=== PATIENT | female | born 1980 | race Caucasian/White ===

== ENCOUNTER 2016-06-09 05:36 | Day surgery (SDC) | payer BC, MEDICAID ==
[2016-06-03 10:20] LABS: HEMATOCRIT 33.4 % (36.0-47.0); HEMOGLOBIN 10.7 g/dL (12.0-15.5); HGB HCT DIFFERENCE -1.3; MEAN CORPUSCULAR HEMOGLOBIN 26.8 pg (27.0-33.4); MEAN CORPUSCULAR HGB CONC 31.9 g/dL (32.0-36.0); MEAN CORPUSCULAR VOLUME 84 fl (80-97); RED BLOOD COUNT 3.97 10^6/uL (3.72-5.28); RED CELL DISTRIBUTION WIDTH 16.8 % (11.5-14.0); WHITE BLOOD COUNT 4.5 10^3/uL (4.0-10.5)
[2016-06-03 10:24] LABS: APPEARANCE,URINE CLOUDY; BILIRUBIN,URINE NEGATIVE (NEGATIVE); GLUCOSE, URINE NEGATIVE (NEGATIVE); KETONES,URINE NEGATIVE (NEGATIVE); LEUKOCYTE ESTERASE,URINE NEGATIVE (NEGATIVE); NITRITE,URINE NEGATIVE (NEGATIVE); PROTEIN,URINE NEGATIVE (NEGATIVE); URINE SPECIFIC GRAVITY 1.008; UROBILINOGEN,URINE NEGATIVE mg/dL (<2.0)
[2016-06-03 10:42] LABS: ALANINE AMINOTRANSFERASE 37 U/L (9-52); ALBUMIN 3.9 g/dL (3.5-5.0); ALKALINE PHOSPHATASE 64 U/L (38-126); ANION GAP 7 (5-19); ASPARTATE AMINO TRANSFERASE 38 U/L (14-36); BILIRUBIN,TOTAL 0.4 mg/dL (0.2-1.3); BLOOD UREA NITROGEN 8 mg/dL (7-20); CALCIUM 9.1 mg/dL (8.4-10.2); CARBON DIOXIDE 28 mmol/L (22-30); CHLORIDE 104 mmol/L (98-107); GLUCOSE 93 mg/dL (75-110); POTASSIUM 4.3 mmol/L (3.6-5.0); SODIUM 138.9 mmol/L (137-145); TOTAL PROTEIN 6.4 g/dL (6.3-8.2)
[~2016-06-09 05:36] MED LIST: CEFAZOLIN SODIUM 1 GM in DEXTROSE 5%-WATER 50 ML IV PRN; LACTATED RINGERS 1000 ML IV PRN; LIDOCAINE 0.5% INJ-PF (5 MG/ML) 50 ML SDV SUBCUT PRN; SCOPOLAMINE HYDROBROMIDE 1.5 MG PATCH.TD72 TD PRN
[2016-06-09] MEDS ORDERED: BUPIVACAINE HCL 0.25 % INJ/PF (2.5 MG/1 ML) 30 ML VIAL ONE (06:31)
[2016-06-09] MEDS ORDERED: ONDANSETRON HCL INJ/PF 4 MG/2 ML SDV ONE (07:05)
[2016-06-09] MEDS ORDERED: MIDAZOLAM 2 MG/2 ML INJ ONE (07:05)
[2016-06-09] MEDS ORDERED: FENTANYL CITRATE INJ/PF 250 MCG/5 ML AMPULE ONE (07:05)
[2016-06-09] MEDS ORDERED: PROPOFOL INJ 200 MG/20 ML VIAL IV ONE (07:05)
[2016-06-09] MEDS ORDERED: DEXAMETHASONE SOD PHOSPHATE INJ 4 MG/1 ML VIAL ONE (07:05)
[2016-06-09] MEDS ORDERED: MORPHINE SULFATE 10 MG/ML INJ ONE (07:06)
[2016-06-09] MEDS ORDERED: MEPERIDINE HCL/PF INJ 25 MG/1 ML DISP.SYRIN IV PRN (08:34)
[2016-06-09] MEDS ORDERED: FENTANYL CITRATE INJ/PF 100 MCG/2 ML AMPUL IV PRN ×3 (08:34)
[2016-06-09] MEDS ORDERED: PROMETHAZINE HCL INJ 25 MG/1 ML VIAL IV PRN ×3 (08:34→09:45)
[2016-06-09] MEDS ORDERED: DIPHENHYDRAMINE HCL 50 MG/ML VIAL IV PRN (08:34)
[2016-06-09] MEDS ORDERED: MORPHINE SULFATE 10 MG/ML INJ IV PRN (08:34)
[2016-06-09] MEDS: FENTANYL CITRATE INJ/PF 100 MCG/2 ML AMPUL ONE ×2 (09:32→09:37)
[2016-06-09] MEDS ORDERED: HYDROMORPHONE HCL 2 MG TABLET PO PRN ×2 (09:44)
[2016-06-09] MEDS ORDERED: KETOROLAC TROMETHAMINE INJ/PF 30 MG/1 ML SDV ONE (09:48)
--- NOTE | 2016-06-09 09:58 | OPERATIVE REPORT E ---
Operative Report NAME: DAYNA KESSLER : 1980 AGE: 35Y DATE OF SURGERY: 06/09/2016 ROOM: PREOPERATIVE DIAGNOSIS: Undesired fertility, dysfunctional uterine bleeding, pelvic pain. POSTOPERATIVE DIAGNOSES: 1. Undesired fertility, dysfunctional uterine bleeding, pelvic pain. 2. Adenomyosis uteri. OPERATION: D and C, hysteroscopy, NovaSure, laparoscopy with application of bilateral Filshie clips to the tubes. SURGEON: CAROLINA ALEXIS M.D. ANESTHESIA: General with 0.25% Marcaine. ESTIMATED BLOOD LOSS: Negligible. PERTINENT HISTORY AND OPERATIVE FINDINGS: This is a 35-year-old female desirous of elective sterilization and also was desirous of stopping her bleeding as it causes a lot of pain and discomfort. She has had some anemia in the past. She was diagnosed with endometriosis in the past and adenomyosis. At this time there was no evidence of endometriosis. She did have a moderate amount of adenomyosis. The tubes appeared to be normal. The ovaries appeared to be normal. The bowel appeared to be grossly normal. The appendix was not visualized. The liver and gallbladder appeared to be normal. OPERATIVE PROCEDURE: The patient was brought into the OR, placed on a table in a supine position, inducted under general anesthesia. Following this she was repositioned in dorsal lithotomy position, prepped and draped in a sterile fashion. The bladder was drained of about 50 mL of clear yellow urine. A pelvic under anesthesia was performed. A bivalve speculum was inserted and opened up. The cervix was grasped on its anterior lip with a single-tooth tenaculum. It was sounded to 9 cm. It was dilated and a tenaculum probe was inserted. The other equipment was removed. Attention was then turned towards the abdominal wall after regloving and Veress needle was introduced subumbilically and carried through the various layers until the abdominal cavity was entered. Upon entering the abdominal cavity approximately 4.3 L of CO2 were injected. The opening pressure was 5 and the closing pressure was 15. Once the Veress needle was removed the equipment was turned off and an incision was made subumbilically. Then a trocar and sleeve were inserted through this incision and carried through the various layers until the abdominal cavity was entered. The insufflation CO2 was reconnected and restarted. A scope was inserted through the sleeve and the contents of the pelvis were visualized. A second incision was made suprapubically through her previous incision and a trocar and sleeve inserted through this. The trocar was moved into the sleeve. Filshie clips were inserted. The right tube was then picked up in its mid portion and a Filshie clip was applied. The same procedure was carried out on the left. After reinspection it became clear that the first Filshie clip that was placed on the right was off center and had really only clipped the mesosalpinx. With this in mind another Filshie clip was obtained and through the suprapubic port it was applied to the mid portion of the right tube. This was adequately secured. Pictures were taken. This terminated the procedure. The lower sleeve was removed. There was no evidence of active bleeding. The scope was removed. The CO2 was allowed to escape. The subumbilical sleeve was removed. Marcaine 0.25% was then injected into the incisions, requiring about 7 mL, 4 mL in the upper subumbilical incision and 3 mL in the lower incision. Having done this, the fascia was closed with interrupted 0 Vicryl in both these incisions. The skin edges in the suprapubic were closed with interrupted using 4-0 Prolene. The subcuticular stitch was used subumbilically to close this incision. Bandages were applied and attention was turned back down towards the pelvis. A weighted speculum was inserted. The lateral retractor was inserted. The cervix was grasped on its anterior lip with 2 single-tooth tenacula. It was measured once again with a probe, and cavity from the cervix to the fundus was 9 cm. Using the dilators it was ascertained that the cervical length was 4 cm, giving us a cavity length of 5 cm. After we dilated the cavity we did do a curettage. Tissue was sent to the lab for further evaluation. A hysteroscope was then enabled with saline and slid gently through the external and internal os of the cervix, and the cavity of the uterus was visualized with no apparent abnormal findings. Having done this the excess fluid was suctioned out and then a NovaSure was gently inserted through the external and internal os of the cervix, advanced to the fundus and opened up. Going north, south, east, west and rotating 45 to 90 degrees in between and then pulling back, this was done 3 times, and we ascertained a cavity width of 4.1. Having established this, they gave us a power level. The equipment was purged and pressures were established and then finally, when the cavity was ascertained to be okay, the power was turned on. We had a good burn. The equipment was closed and removed. The hysteroscope was reinserted. There was a good burn of the uterine cavity. The excess fluid was sucked out again. The tenacula were removed. There was no evidence of active bleeding from the tenaculum punctures. This being the case, the weighted speculum and the lateral retractor were removed and the patient had anesthesia discontinued. She was placed back in a supine position and transferred to the recovery room in satisfactory condition. DICTATING PHYSICIAN: CAROLINA ALEXIS M.D. [id number] PHY#: [id number] ID: [id number] JOB#: [id number] ACCT: [id number] cc:CAROLINA ALEXIS M.D. >
[2016-06-09] MEDS ORDERED: ACETAMINOPHEN 100 ML IV ONE (10:06)
[2016-06-09 11:22] VITALS: BP 124/85
[2016-06-09] MEDS ORDERED: ROCURONIUM BROMIDE INJ 50 MG/5 ML VIAL IV ONE (14:15)
[2016-06-09] MEDS ORDERED: SUCCINYLCHOLINE CHLORIDE INJ 200 MG/10 ML VIAL ONE (14:15)
== END 2016-06-09 11:40 | disposition home or self-care (01) ==
LOC: OROUT 05:36
PROVIDERS: ATTEND Obstetrics & Gynecology
PROC: 0U5B8ZZ Destruction of Endometrium, Via Natural or Artificial Opening Endoscopic (ICD-10-PCS; principal; 2016-06-09 07:30)
PROC: 0UL74CZ Occlusion of Bilateral Fallopian Tubes with Extraluminal Device, Percutaneous Endoscopic Approach (ICD-10-PCS; 2016-06-09 07:30)
DX: Z30.2 Encounter for sterilization (principal); N93.8 Other specified abnormal uterine and vaginal bleeding; N80.0 Endometriosis of uterus; K21.9 Gastro-esophageal reflux disease without esophagitis; D64.9 Anemia, unspecified; Z79.899 Other long term (current) drug therapy; Z88.2 Allergy status to sulfonamides; Z91.040 Latex allergy status
CPT/HCPCS: 36415; 85027; 81025; 80053; 81001; 88305 ×2; 58563; 58671; J2250; J0690; J3490; J1100; J3010 ×2; J1885; J2270; J0330; J2405; J2704; J0131; 851

== ENCOUNTER 2016-07-25 09:09 | Emergency (ER) | payer BC ==
[2016-07-25] MEDS ORDERED: ONDANSETRON 4 MG TAB.RAPDIS PO ONE (09:49)
[2016-07-25 09:53] LABS: APPEARANCE,URINE SLIGHTLY-CLOUDY; BILIRUBIN,URINE NEGATIVE (NEGATIVE); GLUCOSE, URINE NEGATIVE (NEGATIVE); KETONES,URINE NEGATIVE (NEGATIVE); LEUKOCYTE ESTERASE,URINE NEGATIVE (NEGATIVE); NITRITE,URINE POSITIVE (NEGATIVE); PROTEIN,URINE NEGATIVE (NEGATIVE); URINE SPECIFIC GRAVITY 1.019
--- NOTE | 2016-07-25 09:54 | ER Document Report ---
ED GI/ - General Chief Complaint: Pain With Urination Stated Complaint: POSSIBLE UTI Time seen by provider: 09:40 Mode of Arrival: Ambulatory Information source: Patient Notes: 35-year-old female presents to ED for urine urgency frequency and pain in both flank areas. She states she was diagnosed with a bad UTI on Monday started on Cipro and given a Rocephin shot they did a urine but they did not do a sensitivity. She went back to the urgent care today and they told it was indeterminate and send her to the emergency room. She states she does not have burning she just has frequent urgency and flank pain. TRAVEL OUTSIDE OF THE [place] IN LAST 30 DAYS: No - HPI Patient complains to provider of: Flank pain, Other - Urinary frequency urgency and nausea Onset: Other - Monday 3 days ago Timing/Duration: Intermittent Quality of pain: Cramping, Sharp Severity at maximum: Moderate Severity in ED: Moderate Pain Level: 4 Location: Left flank, Right flank LMP: had a tubal ligation and you uterine ablation on 06/09/2016 Associated symptoms: Nausea, Radiates to back Exacerbated by: Other - Urination Relieved by: Denies Similar symptoms previously: Yes Recently seen / treated by doctor: Yes - Related Data Allergies/Adverse Reactions: latex [Latex] Allergy (Severe, Verified 07/25/16 09:10) rash Sulfa (Sulfonamide Antibiotics) Allergy (Severe, Verified 07/25/16 09:10) rash,difficulty breathing Past Medical History - General Information source: Patient - Social History Smoking Status: Never Smoker Cigarette use (# per day): No Chew tobacco use (# tins/day): No Smoking Education Provided: No Frequency of alcohol use: Rare Drug Abuse: None Occupation: [employer] Lives with: Alone - her daught Family History: CAD, CVA, DM, Hyperlipidemia, Hypertension, Thyroid Disfunction , Other - Lupus Patient has suicidal ideation: No Patient has homicidal ideation: No - Past Medical History Cardiac Medical History: Reports: None Pulmonary Medical History: Reports: Hx Pneumonia - hx of EENT Medical History: Reports: None Neurological Medical History: Reports: Hx Migraine Renal/ Medical History: Reports: Hx Ovarian Cysts, Other - Endometriosis Malignancy Medical History: Reports: None GI Medical History: Reports: Hx Gastroesophageal Reflux Disease Musculoskeltal Medical History: Reports Hx Fibromyalgia, Reports Hx Musculoskeletal Trauma Skin Medical History: Reports None Psychiatric Medical History: Reports: Hx Attention Deficit Hyperactivity Disorder - ADD, Hx Depression Traumatic Medical History: Reports: Hx Pneumothorax - At with a chest tube Past Surgical History: Reports: Hx Section, Hx Gynecologic Surgery - Laparoscope bilateral tubal ligation, uterine ablation, Hx Orthopedic Surgery - Left Knee Surgery - Immunizations Hx Diphtheria, Pertussis, Tetanus Vaccination: Yes Review of Systems - Review of Systems Constitutional: No symptoms reported EENT: No symptoms reported Cardiovascular: No symptoms reported Respiratory: No symptoms reported Gastrointestinal: Nausea. denies: Vomiting Genitourinary: Frequency, Urgency, Other - Flank pain Female Genitourinary: No symptoms reported Musculoskeletal: No symptoms reported Skin: No symptoms reported Hematologic/Lymphatic: No symptoms reported Neurological/Psychological: No symptoms reported -: Yes All other systems reviewed and negative Physical Exam - Vital signs Vitals: Temp Pulse Resp BP Pulse Ox 98.6 F 83 16 134/87 H 99 07/25/16 09:13 07/25/16 09:13 07/25/16 09:13 07/25/16 09:13 07/25/16 09:13 Interpretation: Normal - General General appearance: Appears well, Alert - HEENT Head: Normocephalic, Atraumatic Eyes: Normal Pupils: PERRL - Respiratory Respiratory status: No respiratory distress Chest status: Nontender Breath sounds: Normal Chest palpation: Normal - Cardiovascular Rhythm: Regular Heart sounds: Normal auscultation Murmur: No - Abdominal Inspection: Normal Distension: No distension Bowel sounds: Normal Tenderness: Nontender Organomegaly: No organomegaly - Back Back: Normal, Tender, CVA tenderness. No: Nontender, Deformity/step-off, Vertebra tenderness, Scars, Scoliosis, Wounds, Other - Extremities General upper extremity: Normal inspection, Nontender, Normal color, Normal ROM , Normal temperature General lower extremity: Normal inspection, Nontender, Normal color, Normal ROM , Normal temperature, Normal weight bearing. No: Rodger's sign - Neurological Neuro grossly intact: Yes Cognition: Normal Orientation: AAOx4 Dru Coma Scale Eye Opening: Spontaneous Sebastian Coma Scale Verbal: Oriented Sebastian Coma Scale Motor: Obeys Commands Sebastian Coma Scale Total: 15 Speech: Normal Motor strength normal: LUE, RUE, LLE, RLE Sensory: Normal - Psychological Associated symptoms: Normal affect, Normal mood - Skin Skin Temperature: Warm Skin Moisture: Dry Skin Color: Normal Course - Re-evaluation Re-evalutation: 07/25/16 10:03 Discussed labs results with the patient we'll treat patient with Macrobid and Toradol and discharged home with prescription for Macrobid. Have sent a culture and sensitivity for the urine patient will be called with the results of that. - Vital Signs Vital signs: Temp Pulse Resp BP Pulse Ox 98.1 F 66 19 118/74 98 07/25/16 10:27 07/25/16 10:27 07/25/16 10:27 07/25/16 10:27 07/25/16 10:27 - Laboratory Laboratory results interpreted by me: 07/25/16 09:30 Urine Nitrite POSITIVE H Urine Urobilinogen 2.0 H Discharge - Discharge Clinical Impression: UTI (urinary tract infection) Qualifiers: Urinary tract infection type: acute cystitis Hematuria presence: without hematuria Qualified Code(s): N30.00 - Acute cystitis without hematuria Condition: Stable Disposition: HOME, SELF-CARE Additional Instructions: URINARY TRACT INFECTION: Your evaluation indicates that you have a urinary tract infection. This is due to germs growing in the bladder. This is a common problem. This infection usually responds quickly to antibiotics. Your antibiotic should be taken exactly as prescribed. Drink plenty of fluids -- three to four quarts a day. Occasionally, a bladder anesthetic will be prescribed to help stop the feeling of urgency until the antibiotic has a chance to clear the infection. This may cause your urine to be dark orange. Certain urine infections require a culture. If the doctor obtained a culture, the results will be back in two days. You should call to see if a change in treatment is needed. A repeat urinalysis after you finish treatment is often recommended. The physician will let you know if further testing is required. Call the doctor if you develop fever, chills, flank pain, inability to urinate, or blood in the urine. NITROFURANTOIN (MACRODANTIN, MACROBID): You have received a prescription for nitrofurantoin (Macrodantin). This antibiotic is used for urinary tract infections. Women who are or nursing should notify the physician before taking this medicine. If you have ever had a problem caused by this medication in the past, be sure the physician is aware of it. Common side effects of this medicine include nausea, vomiting, or decreased appetite. Notify your physician if these side effects become severe. Immediately stop this medicine and call the physician if you develop cough , shortness of breath, chest pain, weakness, jaundice (yellow color of the skin and whites of the eyes), or a skin rash. Toradol Injection You have been given an injection of ketorolac tromethamine (Toradol). This is an excellent, safe drug for pain control. It also has potent antiinflammatory action. You should have significant pain relief within about one hour. Toradol is not addicting and is non-sedating. It does not interfere with driving or work. Call or return if you develop itching, hives, shortness of breath, or rash. FOLLOW-UP CARE: If you have been referred to a physician for follow-up care, call the physician s office for an appointment as you were instructed or within the next two days. If you experience worsening or a significant change in your symptoms, notify the physician immediately or return to the Emergency Department at any time for re-evaluation. Please complete the patient's satisfaction survey if you get one and return. If you do not receive a survey you can go to [email or web address] website [email or web address] and placed your comments about your very good care. Thank you very much. It was a pleasure be in your medical provider today. Prescriptions: Nitrofurantoin/Nitrofuran Mac [Macrobid 100 mg Capsule] 1 tab PO BID #20 capsule Forms: Return to Work Referrals: CAROLINA ALEXIS MD [Primary Care Provider] - Follow up as needed
[2016-07-25] MEDS ORDERED: KETOROLAC TROMETHAMINE 60 MG/2 ML SDV IM ONE (10:03)
[2016-07-25] MEDS ORDERED: NITROFURANTOIN MONOHYD/M-CRYST 100 MG CAPSULE PO ONE (10:03)
[2016-07-25 10:27] VITALS: BP 118/74
== END 2016-07-25 10:27 | disposition home or self-care (01) ==
LOC: ER 09:09
DX: N30.00 Acute cystitis without hematuria (principal); R30.0 Dysuria; R10.9 Unspecified abdominal pain; R11.0 Nausea; Z91.040 Latex allergy status; Z88.2 Allergy status to sulfonamides; Z98.51 Tubal ligation status
CPT/HCPCS: 99283; 96372; 87086; 81025; 81001; J1885; S0119; J8499

== ENCOUNTER 2016-10-29 08:20 | Emergency (ER) | payer BC ==
[2016-10-29 09:03] LABS: ABSOLUTE EOSINOPHILS # (AUTO) 0.1 10^3/uL (0.0-0.6); ABSOLUTE LYMPHOCYTES (AUTO) 1.6 10^3/uL (0.5-4.7); ABSOLUTE MONOCYTES (AUTO) 0.6 10^3/uL (0.1-1.4); ABSOLUTE NEUT (AUTO) 5.2 10^3/uL (1.7-8.2); BASOPHILS % (AUTO) 0.5 % (0-2); EOSINOPHILS % (AUTO) 0.9 % (0-6); HEMOGLOBIN 11.6 g/dL (12.0-15.5); HGB HCT DIFFERENCE -1.2; LYMPHOCYTES % (AUTO) 21.4 % (13-45); MEAN CORPUSCULAR HEMOGLOBIN 28.2 pg (27.0-33.4); MEAN CORPUSCULAR HGB CONC 32.3 g/dL (32.0-36.0); MEAN CORPUSCULAR VOLUME 87 fl (80-97); MONOCYTES % (AUTO) 7.4 % (3-13); RED BLOOD COUNT 4.13 10^6/uL (3.72-5.28); SEGMENTED NEUTROPHILS % (AUTO) 69.8 % (42-78); WHITE BLOOD COUNT 7.5 10^3/uL (4.0-10.5)
[2016-10-29 09:16] LABS: APPEARANCE,URINE SLIGHTLY-CLOUDY; BILIRUBIN,URINE NEGATIVE (NEGATIVE); GLUCOSE, URINE NEGATIVE (NEGATIVE); KETONES,URINE NEGATIVE (NEGATIVE); LEUKOCYTE ESTERASE,URINE NEGATIVE (NEGATIVE); NITRITE,URINE NEGATIVE (NEGATIVE); PROTEIN,URINE NEGATIVE (NEGATIVE); URINE SPECIFIC GRAVITY 1.006; UROBILINOGEN,URINE NEGATIVE mg/dL (<2.0)
[2016-10-29 09:24] LABS: ALANINE AMINOTRANSFERASE 22 U/L (9-52); ALBUMIN 4.3 g/dL (3.5-5.0); ALKALINE PHOSPHATASE 58 U/L (38-126); ANION GAP 12 (5-19); ASPARTATE AMINO TRANSFERASE 17 U/L (14-36); BILIRUBIN,DIRECT 0.3 mg/dL (0.0-0.4); BILIRUBIN,TOTAL 0.6 mg/dL (0.2-1.3); BLOOD UREA NITROGEN 10 mg/dL (7-20); CALCIUM 9.6 mg/dL (8.4-10.2); CARBON DIOXIDE 25 mmol/L (22-30); CHLORIDE 104 mmol/L (98-107); GLUCOSE 90 mg/dL (75-110); LIPASE 78.1 U/L (23-300); POTASSIUM 4.1 mmol/L (3.6-5.0); SODIUM 140.5 mmol/L (137-145); TOTAL PROTEIN 7.3 g/dL (6.3-8.2)
[2016-10-29] MEDS ORDERED: MORPHINE SULFATE 10 MG/ML INJ IV ONE ×2 (09:26→11:06)
[2016-10-29] MEDS ORDERED: KETOROLAC TROMETHAMINE INJ/PF 30 MG/1 ML SDV IV ONE (09:26)
[2016-10-29] MEDS ORDERED: ONDANSETRON HCL INJ/PF 4 MG/2 ML SDV IV ONE ×2 (09:26→11:06)
--- NOTE | 2016-10-29 09:28 | ER Document Report ---
ED GI/ - General Mode of Arrival: Ambulatory Information source: Patient TRAVEL OUTSIDE OF THE [place] IN LAST 30 DAYS: No - HPI Similar symptoms previously: No Recently seen / treated by doctor: No <KIRT RIOS - Last Filed: 10/29/16 11:36> <DEVANGGIL Guzmán - Last Filed: 10/29/16 11:56> - General Chief Complaint: Abdominal Pain Stated Complaint: ABDOMINAL PAIN Time Seen by Provider: 10/29/16 09:14 Notes: Patient is a 35-year-old female presenting to the emergency department for sharp shooting pain in her abdomen. Patient states her symptoms were onset yesterday. Patient's pain has been progressing for 2 days now. Patient has also had nausea for 2 days. Patient denies any known fevers. Patient states that her pain radiates to her bellybutton. Patient points to her left lower quadrant when asked where she is most having pain. Patient had a uterine ablation in May and has not had a menses since. Patient has a history of endometriosis. Patient also has history of ADHD and takes Adderall, GERD and takes omeprazole, history of ovarian cyst and a in 2009. Patient's primary care physician is Dr. Alexis. (KIRT RIOS) - Related Data Allergies/Adverse Reactions: latex [Latex] Allergy (Severe, Verified 10/29/16 08:24) rash Sulfa (Sulfonamide Antibiotics) Allergy (Severe, Verified 10/29/16 08:24) rash,difficulty breathing Past Medical History - General Information source: Patient - Social History Smoking Status: Never Smoker Cigarette use (# per day): No Chew tobacco use (# tins/day): No Frequency of alcohol use: Rare Drug Abuse: None Family History: CAD, CVA, DM, Hyperlipidemia, Hypertension, Thyroid Disfunction , Other - Lupus Patient has suicidal ideation: No Patient has homicidal ideation: No Pulmonary Medical History: Reports: Hx Pneumonia - hx of Neurological Medical History: Reports: Hx Migraine Renal/ Medical History: Reports: Hx Ovarian Cysts, Other - Endometriosis GI Medical History: Reports: Hx Gastroesophageal Reflux Disease Musculoskeltal Medical History: Reports Hx Fibromyalgia, Reports Hx Musculoskeletal Trauma Psychiatric Medical History: Reports: Hx Attention Deficit Hyperactivity Disorder - ADD, Hx Depression Traumatic Medical History: Reports: Hx Pneumothorax - At with a chest tube Past Surgical History: Reports: Hx Section, Hx Gynecologic Surgery - Laparoscope bilateral tubal ligation, uterine ablation, Hx Orthopedic Surgery - Left Knee Surgery - Immunizations Hx Diphtheria, Pertussis, Tetanus Vaccination: Yes <KIRT RIOS - Last Filed: 10/29/16 11:36> Review of Systems - Review of Systems Constitutional: No symptoms reported EENT: No symptoms reported Cardiovascular: No symptoms reported Respiratory: No symptoms reported Gastrointestinal: See HPI, Abdominal pain, Nausea Genitourinary: No symptoms reported Female Genitourinary: See HPI Musculoskeletal: No symptoms reported Skin: No symptoms reported Hematologic/Lymphatic: No symptoms reported Neurological/Psychological: No symptoms reported -: Yes All other systems reviewed and negative <KIRT RIOS - Last Filed: 10/29/16 11:36> Physical Exam - Vital signs Interpretation: Normal <KIRT RIOS - Last Filed: 10/29/16 11:36> - Genitourinary External exam: Normal Speculum exam: Cervix closed, Vaginal discharge - There is a minimal white discharge. Cervical mucus is clear. Bimanuel exam: Cervical motion tender - Uterine palpation is tender as is right and left adnexal palpation with the left worse than the right. <GIL SIDDIQI - Last Filed: 10/29/16 11:56> - Vital signs Vitals: Temp Pulse Resp BP Pulse Ox 97.7 F 84 18 118/72 98 10/29/16 08:24 10/29/16 08:24 10/29/16 08:24 10/29/16 08:24 10/29/16 08:24 - Notes Notes: GENERAL: Alert, interacts well. No acute distress. HEAD: Normocephalic, atraumatic. EYES: Appear normal. Pupils equal, round, and reactive to light. ENT: Moist mucus membranes, tongue midline. NECK: Full range of motion. Supple. Trachea midline. LUNGS: Clear to auscultation bilaterally, no wheezes, rales, or rhonchi. No respiratory distress. HEART: Regular rate and rhythm. No murmurs, gallops, or rubs. ABDOMEN: Left lower quadrant and pelvic tenderness to palpation. Non-distended. Normal bowel sounds. EXTREMITIES: Moves all 4 extremities spontaneously. Normal strength. No edema. NEUROLOGICAL: Alert and oriented x3. Normal speech. No focal neurological deficits. GSC 15. PSYCH: Normal affect, normal mood. SKIN: Warm, dry, normal turgor. No rashes or lesions noted. (KIRT RIOS) Course - Laboratory Result Diagrams: 10/29/16 08:32 10/29/16 08:32 <KIRT RIOS - Last Filed: 10/29/16 11:36> - Laboratory Result Diagrams: 10/29/16 08:32 10/29/16 08:32 - Diagnostic Test Radiology reviewed: Image reviewed, Reports reviewed - Transvaginal ultrasound shows some fluid around the left ovary and a probable right corpus luteum. No gross abnormalities. <GIL SIDDIQI - Last Filed: 10/29/16 11:56> - Re-evaluation Re-evalutation: 10/29/16 11:51 The patient does have a history of endometriosis. She had a uterine ablation so cannot tell when her LMP would have been. Ultrasound shows what appears to be a corpus luteum in the right ovary, which would suggest that her normal cycle would not be starting for several more days. She has had her tubes tied in the past. (GIL SIDDIQI) - Vital Signs Vital signs: Temp Pulse Resp BP Pulse Ox 97.7 F 84 18 118/72 98 10/29/16 08:24 10/29/16 08:24 10/29/16 08:33 10/29/16 08:24 10/29/16 08:24 - Laboratory Laboratory results interpreted by me: 10/29/16 08:32 Hgb 11.6 L RDW 18.0 H Discharge <KIRT RIOS - Last Filed: 10/29/16 11:36> <GIL SIDDIQI - Last Filed: 10/29/16 11:56> - Discharge Clinical Impression: Pelvic pain Condition: Stable Disposition: HOME, SELF-CARE Additional Instructions: Pelvic Pain: There are many causes of pain in the pelvic area. The cause could be the tubes, ovaries, uterus, intestines, appendix, pelvic muscles and connective tissue, or the urinary tract. The cause of your pelvic pain is not clear. However, it seems safe to treat you outside the hospital. If the pain sounds like a temporary problem, we sometimes wait to see if it goes away. Other patients may need additional tests, such as pelvic ultrasound or cultures. Conditions may change. Call us or come back for reexamination if any problems occur, such as: (1) Pain that becomes more severe, steady, or becomes concentrated in one specific area. Also, pain that is more severe with movement or coughing. (2) Vomiting that persists or becomes more frequent. (3) Blood in the vomitus, urine, or bowel movements. Blood in the stool may have a tarry or black appearance. (4) Shaking chills or fever greater than 100 degrees. (5) The abdomen becomes more distended or swollen. (6) Bowel movements cease. (7) Heavy vaginal bleeding. TAKE THE MEDICATION PRESCRIBED. REST. DRINK PLENTY OF FLUIDS. FOLLOW UP WITH DR. ALEXIS IF NOT IMPROVING. RETURN TO THE EMERGENCY ROOM IF ANY NEW OR WORSENING SYMPTOMS. Prescriptions: Doxycycline Hyclate 100 mg PO BID #14 tablet Hydrocodone/Acetaminophen [[place] 5-325 mg Tablet] 1 tab PO Q4 PRN #15 tablet PRN Reason: Forms: Return to Work Referrals: CAROLINA ALEXIS MD [ACTIVE STAFF] - Follow up as needed Scribe Attestation: 10/29/16 11:56 I personally performed the services described in the documentation, reviewed and edited the documentation which was dictated to the scribe in my presence, and it accurately records my words and actions. (GIL SIDDIQI) Scribe Documentation - Scribe Written by Ainsley:: Ainsley Fuentes, 10/29/2016 10:21 acting as scribe for :: Devang <KIRT RIOS - Last Filed: 10/29/16 11:36>
--- NOTE | 2016-10-29 11:09 | RADIOLOGY REPORT (SQ) ---
EXAM DESCRIPTION: U/S NON-OB PELVIS TV W/O DOP COMPLETED DATE/TIME: 10/29/2016 10:55 am REASON FOR STUDY: LLQ/pelvic pain COMPARISON: None. TECHNIQUE: Dynamic and static grayscale images acquired of the pelvis via transvaginal approach and recorded on PACS. Additional selected color Doppler and spectral images recorded. LIMITATIONS: None. FINDINGS: UTERUS: Contour normal. No mass. ENDOMETRIAL STRIPE: No solid mass or thickening. Trace areas of endometrial fluid. CERVIX: Trace fluid. RIGHT OVARY: No abnormal masses. Probable corpus luteum measuring up to 2.6 cm, slightly thick-walled cyst. RIGHT OVARY DOPPLER: Normal arterial vascular flow without evidence for torsion. LEFT OVARY: No abnormal masses. LEFT OVARY DOPPLER: Normal arterial vascular flow without evidence for torsion. FREE FLUID: Trace fluid about the left ovary. OTHER: No other significant finding. MEASUREMENTS: UTERUS: 8.2 x 5.9 x 5.1 cm ENDOMETRIAL STRIPE: 11 mm RIGHT OVARY: 4.0 x 2.9 x 2.3 cm LEFT OVARY: 3.6 x 1.8 x 2.2 cm IMPRESSION: No worrisome pelvic findings. As above. Probable corpus luteum in the right ovary. Tr carlos fluid about the left ovary. TECHNICAL DOCUMENTATION: JOB ID: [id number] [employer]- All Rights Reserved
[2016-10-29] MEDS ORDERED: CEFTRIAXONE INJ 1000 MG VIAL IM ONE (11:49)
[2016-10-29] MEDS ORDERED: LIDOCAINE 1% INJ-PF (10 MG/ML) 30 ML SDV INJ ONE (11:49)
[2016-10-29 12:32] VITALS: BP 135/88
[2016-10-29 13:35] LABS: CHLAM PCR NOT DETECTED (NOT DETECT)
== END 2016-10-29 12:32 | disposition home or self-care (01) ==
LOC: ER 08:20
DX: R10.2 Pelvic and perineal pain (principal); R11.0 Nausea; F90.9 Attention-deficit hyperactivity disorder, unspecified type; K21.9 Gastro-esophageal reflux disease without esophagitis; Z87.42 Personal history of other diseases of the female genital tract; Z98.890 Other specified postprocedural states; Z79.899 Other long term (current) drug therapy; Z91.040 Latex allergy status; Z88.2 Allergy status to sulfonamides; Z98.51 Tubal ligation status
CPT/HCPCS: 96376; 99284; 96372; 96374; 96375; 36415; 87210; 84702; 83690; 85025; 80053; 81001; 87491; 87591; 76830; J3490; J1885; J2270; J0696; J2405

== ENCOUNTER 2017-03-04 08:54 | Emergency (ER) | payer BC ==
[2017-03-04 09:00] VITALS: BP 132/84
--- NOTE | 2017-03-04 09:30 | ER Document Report ---
ED General - General Chief Complaint: Congestion Stated Complaint: COLD SYMPTOMS Time Seen by Provider: 03/04/17 09:06 Mode of Arrival: Ambulatory Information source: Patient Notes: Patient is a 36-year-old white female comes to emergency room with multiple complaints. Mostly patient complains of nausea vomiting with diarrhea. She also states she has had some congestion runny nose and low-grade fever. She denies any dysuria. She denies any abdominal pain with the exception of normal cramping when she has the diarrhea. TRAVEL OUTSIDE OF THE [place] IN LAST 30 DAYS: No - HPI Patient complains to provider of: Nausea vomiting diarrhea with congestion Onset: Yesterday Onset/Duration: Gradual Quality of pain: No pain, Cramping Severity: Mild Pain Level: 1 Associated symptoms: Body/muscle aches, Fever, Nausea, Vomiting, Rhinnorhea Exacerbated by: Denies Relieved by: Denies Similar symptoms previously: Yes Recently seen / treated by doctor: No - Related Data Allergies/Adverse Reactions: latex [Latex] Allergy (Severe, Verified 03/04/17 08:59) rash Sulfa (Sulfonamide Antibiotics) Allergy (Severe, Verified 03/04/17 08:59) rash,difficulty breathing Home Medications: Current Home Medications Dextroamphetamine/Amphetamine [Dextroamp-Amphetamin 10 mg Tab] 10 mg PO DAILY [History] Dextroamphetamine/Amphetamine [Dextroamp-Amphetamin 10 mg Tab] 30 mg PO QAM [History] Hydrocodone/Acetaminophen [[place] 5-325 mg Tablet] 1.5 tab PO Q6H PRN 03/04/17 [ History] Venlafaxine HCl ER [Effexor Xr 37.5 mg Cap.sr] 37.5 mg PO DAILY 03/04/17 [ History] Past Medical History - General Information source: Patient Last Menstrual Period: At ablation - Social History Smoking Status: Never Smoker Cigarette use (# per day): No Chew tobacco use (# tins/day): No Smoking Education Provided: No Frequency of alcohol use: None Drug Abuse: None Lives with: Family Family History: CAD, CVA, DM, Hyperlipidemia, Hypertension, Thyroid Disfunction , Other - Lupus Patient has suicidal ideation: No Patient has homicidal ideation: No - Past Medical History Cardiac Medical History: Denies: Hx Heart Attack, Hx Hypertension Pulmonary Medical History: Reports: Hx Pneumonia - hx of Denies: Hx Asthma, Hx Bronchitis, Hx COPD Neurological Medical History: Reports: Hx Migraine. Denies: Hx Seizures Renal/ Medical History: Reports: Hx Ovarian Cysts. Denies: Hx Peritoneal Dialysis GI Medical History: Reports: Hx Gastroesophageal Reflux Disease Musculoskeltal Medical History: Denies Hx Arthritis, Reports Hx Fibromyalgia, Reports Hx Musculoskeletal Trauma Psychiatric Medical History: Reports: Hx Attention Deficit Hyperactivity Disorder - ADD, Hx Depression Traumatic Medical History: Reports: Hx Pneumothorax - At with a chest tube Past Surgical History: Reports: Hx Section, Hx Gynecologic Surgery - Laparoscope bilateral tubal ligation, uterine ablation, Hx Orthopedic Surgery - Left Knee Surgery - Immunizations Hx Diphtheria, Pertussis, Tetanus Vaccination: Yes Review of Systems - Review of Systems Constitutional: Fever, Malaise EENT: Nose congestion, Sinus pressure Cardiovascular: No symptoms reported Respiratory: No symptoms reported Gastrointestinal: Diarrhea, Nausea, Vomiting Genitourinary: No symptoms reported Female Genitourinary: No symptoms reported Musculoskeletal: No symptoms reported Skin: No symptoms reported Hematologic/Lymphatic: No symptoms reported Neurological/Psychological: No symptoms reported -: Yes All other systems reviewed and negative Physical Exam - Vital signs Vitals: Temp Pulse Resp BP Pulse Ox 98.1 F 100 16 132/84 H 99 03/04/17 08:58 03/04/17 08:58 03/04/17 08:58 03/04/17 08:58 03/04/17 08:58 - General General appearance: Other - Uncomfortable In distress: None - HEENT Head: Normocephalic, Atraumatic Eyes: Normal Conjunctiva: Normal External canal: Normal. No: Blood in canal, Cerumen impaction, Erythema, Foreign body, Swollen, Other Tympanic membrane: Normal. No: Bulging, Hemotympanum, Injected, Loss of landmarks, Perforation, Purulent effusion, Retracted, Serous effusion, Other Sinus: Maxillary, Tenderness Nasal: Normal Mouth/Lips: Normal Mucous membranes: Moist Pharynx: Normal. No: Blood in hypopharynx, Erythema, Exudate, Peritonsillar abscess, Post nasal drainage, Retropharyngeal abscess, Tonsillar hypertrophy, Uvular edema, Potential airway comprom., Other Neck: Normal - Respiratory Respiratory status: No respiratory distress Breath sounds: Normal. No: Decreased air movement, Nonproductive cough, Productive cough, Rales, Rhonchi, Stridor, Wheezing, Other - Cardiovascular Rhythm: Regular Heart sounds: Normal auscultation Murmur: No - Abdominal Inspection: Normal Distension: No distension Bowel sounds: Hyperactive Tenderness: Nontender Organomegaly: No organomegaly - Back Back: Normal, Nontender - Neurological Neuro grossly intact: Yes Cognition: Normal Orientation: AAOx4 [place] Coma Scale Eye Opening: Spontaneous [place] Coma Scale Verbal: Oriented Dru Coma Scale Motor: Obeys Commands Dru Coma Scale Total: 15 Speech: Normal - Skin Skin Temperature: Warm Skin Moisture: Dry Skin Color: Normal, [place] Skin Turgor: Elastic Course - Vital Signs Vital signs: Temp Pulse Resp BP Pulse Ox 98.1 F 100 16 132/84 H 99 03/04/17 08:58 03/04/17 08:58 03/04/17 08:58 03/04/17 08:58 03/04/17 08:58 - Transfer of Care Notes: 03/04/17 09:47 Had a discussion with patient about symptoms. 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 At this time a believe this is a morbidly viral presentation with a gastroenteritis. Patient has no abdominal pain. We will treat symptomatically. Patient is in agreement with this will send her home today back to work on Monday her normally scheduled time. Discharge - Discharge Clinical Impression: Viral gastroenteritis Condition: Good Disposition: HOME, SELF-CARE Instructions: Gastroenteritis (adult) (COUNTS INCLUDE 234 BEDS AT THE [facility]) Additional Instructions: Home and rest. Medications prescribed. Increase fluid intake. Should you have any concerns or problems return to ER for recheck. Prescriptions: Hyoscyamine Sulfate [Levsin-Sl] 0.125 mg SL Q4 PRN #20 tab.subl PRN Reason: Promethazine HCl [Phenergan 25 mg Tablet] 25 mg PO ASDIR PRN #15 tablet PRN Reason: Pseudoephedrine HCl [Sudafed 12-Hour] 120 mg PO BID #20 tablet.er Forms: Return to Work
== END 2017-03-04 09:58 | disposition home or self-care (01) ==
LOC: ER 08:54
DX: A08.4 Viral intestinal infection, unspecified (principal); R09.81 Nasal congestion; R11.2 Nausea with vomiting, unspecified; R19.7 Diarrhea, unspecified; R09.89 Other specified symptoms and signs involving the circulatory and respiratory systems; R50.9 Fever, unspecified
CPT/HCPCS: 99283

== ENCOUNTER 2017-07-28 07:54 | Emergency (ER) | payer BC ==
[2017-07-28] MEDS ORDERED: KETOROLAC TROMETHAMINE INJ/PF 30 MG/1 ML SDV IV ONE (08:38)
[2017-07-28] MEDS ORDERED: ONDANSETRON HCL INJ/PF 4 MG/2 ML SDV IV ONE (08:38)
[2017-07-28] MEDS ORDERED: NORMAL SALINE 1000 ML 1,000 ML IV ONE (08:38)
--- NOTE | 2017-07-28 08:43 | ER Document Report ---
ED Flu Like - General Chief Complaint: Flu Symptoms Stated Complaint: VOMITING,SORE THROAT,FEVER Time Seen by Provider: 07/28/17 08:12 Mode of Arrival: Ambulatory Information source: Patient TRAVEL OUTSIDE OF THE [place] IN LAST 30 DAYS: No - HPI Patient complains to provider of: n/v, st Onset: Other - 2 days Notes: Patient is here with complaints of nausea, vomiting with mild diarrhea for the last 2 days. States that her last episode of vomiting was yesterday around to 2 PM. No fevers. She is had some mild abdominal cramping but denies any significant abdominal pain. She denies any dysuria or hematuria. No vaginal bleeding or discharge. Last normal menstrual period was a few years ago, she states that she had an ablation so she no longer has menstrual cycle. She also complains of some mild nasal congestion, runny nose as well as sore throat. She denies any chest pain or shortness of breath. No rash. No leg pain or leg swelling. No flank pain. She had some intermittent headaches. No neck stiffness. No blurred or loss vision. No unilateral numbness, tingling, weakness. Nothing makes her symptoms better or worse. She denies any other complaints at this time. - Related Data Allergies/Adverse Reactions: latex [Latex] Allergy (Severe, Verified 03/04/17 08:59) rash Sulfa (Sulfonamide Antibiotics) Allergy (Severe, Verified 03/04/17 08:59) rash,difficulty breathing Past Medical History - Social History Smoking Status: Unknown if Ever Smoked Family History: CAD, CVA, DM, Hyperlipidemia, Hypertension, Thyroid Disfunction , Other - Lupus Patient has suicidal ideation: No Patient has homicidal ideation: No - Past Medical History Cardiac Medical History: Denies: Hx Heart Attack, Hx Hypertension Pulmonary Medical History: Reports: Hx Pneumonia - hx of Denies: Hx Asthma, Hx Bronchitis, Hx COPD Neurological Medical History: Reports: Hx Migraine. Denies: Hx Seizures Renal/ Medical History: Reports: Hx Ovarian Cysts. Denies: Hx Peritoneal Dialysis GI Medical History: Reports: Hx Gastroesophageal Reflux Disease Musculoskeltal Medical History: Denies Hx Arthritis, Reports Hx Fibromyalgia, Reports Hx Musculoskeletal Trauma Psychiatric Medical History: Reports: Hx Attention Deficit Hyperactivity Disorder - ADD, Hx Depression Traumatic Medical History: Reports: Hx Pneumothorax - At with a chest tube Past Surgical History: Reports: Hx Section, Hx Gynecologic Surgery - Laparoscope bilateral tubal ligation, uterine ablation, Hx Orthopedic Surgery - Left Knee Surgery - Immunizations Hx Diphtheria, Pertussis, Tetanus Vaccination: Yes Review of Systems - Review of Systems -: Yes All other systems reviewed and negative Physical Exam - Vital signs Vitals: Temp Pulse Resp BP Pulse Ox 98.2 F 88 18 118/71 99 07/28/17 08:06 07/28/17 08:06 07/28/17 08:06 07/28/17 08:06 07/28/17 08:06 - Notes Notes: GENERAL: alert, cooperative, nontoxic, no distress. HEAD: normocephalic, atraumatic EYES: conjunctiva pink without discharge, no external redness or swelling. EARS: no external swelling, no external redness NOSE: atraumatic, no external swelling MOUTH/THROAT: mucous membranes moist and pink, posterior pharynx without erythema, swelling, exudate. No trismus or drooling. No stridor. Uvula is midline. No peritonsillar abscess. NECK: soft, supple, full range of motion, no meningismus. CHEST: no distress, lungs clear and equal throughout. No wheezing, rales, rhonchi. CARDIAC: regular rate and rhythm, no murmur, normal capillary refill, normal pulses. No peripheral edema noted. ABDOMEN: Soft, nontender. No rebound tenderness or guarding. No mass. BACK: full range of motion, no CVA tenderness. EXTREMITIES: full range of motion of all extremities. No redness, no swelling. NEURO: alert and oriented x 3, no focal deficits, full range of motion of all extremities. PYSCH: appropriate mood, affect. Patient is cooperative. SKIN: pink, warm, dry, no rash. Course - Re-evaluation Re-evalutation: 07/28/17 10:07 Patient is nontoxic appearing with stable vitals. Patient's had some nausea vomiting with sore throat body aches intermittent headaches for the last few days. Last vomiting was yesterday afternoon. She denies any abdominal pain. No dysuria or hematuria. On exam she has no abdominal tenderness. Workup is unremarkable with no acute abnormalities of her labs. Urinalysis is negative. Patient is feeling better after some Toradol Zofran and fluids. This point patient likely has a viral illness and will be discharged home with prescriptions for Voltaren and Zofran. She is instructed to follow-up with her primary care doctor if not better in the next 3 days, sooner for worsening symptoms, high fever, persistent vomiting, severe abdominal pain, or for any further concerns. The patient's emergency department workup and current diagnosis were explained to the patient and or family. Follow-up instructions were provided. Medications if prescribed were discussed. Instructions for when to return to the emergency department including specific worrisome symptoms were discussed with the patient and/or family. - Vital Signs Vital signs: Temp Pulse Resp BP Pulse Ox 98.2 F 88 18 118/71 99 07/28/17 08:06 07/28/17 08:06 07/28/17 08:06 07/28/17 08:06 07/28/17 08:06 - Laboratory Result Diagrams: 07/28/17 09:05 07/28/17 09:05 Laboratory results interpreted by me: 07/28/17 07/28/17 07/28/17 09:05 09:05 09:28 RDW 14.7 H Seg Neutrophils % 81.3 H Glucose 114 H Urine Ascorbic Acid 20 H Discharge - Discharge Clinical Impression: Viral syndrome Nausea & vomiting Qualifiers: Vomiting type: unspecified Vomiting Intractability: non-intractable Qualified Code(s): R11.2 - Nausea with vomiting, unspecified Condition: Stable Disposition: HOME, SELF-CARE Instructions: Antinausea Medication ([facility]), Viral Syndrome ([facility]), Vomiting ([facility]) Additional Instructions: Take medications as prescribed. Follow-up with your primary care doctor if not better in the next 3-5 days, sooner for worsening pain, high fever, persistent vomiting, chest pain or difficulty breathing, or for any further concerns. Prescriptions: Diclofenac Sodium [Voltaren 50 Mg Tablet.] 50 mg PO BID #20 tablet. Ondansetron HCl [Zofran 4 mg Tablet] 1 - 2 tab PO Q4H PRN #10 tablet PRN Reason: Forms: Smoking Cessation Education Referrals: CAROLINA ALEXIS MD [Primary Care Provider] - Follow up as needed
[2017-07-28 09:20] LABS: ABSOLUTE LYMPHOCYTES (AUTO) 1.2 10^3/uL (0.5-4.7); ABSOLUTE MONOCYTES (AUTO) 0.5 10^3/uL (0.1-1.4); ABSOLUTE NEUT (AUTO) 7.5 10^3/uL (1.7-8.2); BASOPHILS % (AUTO) 0.4 % (0-2); EOSINOPHILS % (AUTO) 0.1 % (0-6); HEMATOCRIT 39.8 % (36.0-47.0); HEMOGLOBIN 13.3 g/dL (12.0-15.5); LYMPHOCYTES % (AUTO) 13.3 % (13-45); MEAN CORPUSCULAR HEMOGLOBIN 30.8 pg (27.0-33.4); MEAN CORPUSCULAR HGB CONC 33.3 g/dL (32.0-36.0); MEAN CORPUSCULAR VOLUME 92 fl (80-97); MONOCYTES % (AUTO) 4.9 % (3-13); PLATELET COUNT 356 10^3/uL (150-450); RED BLOOD COUNT 4.32 10^6/uL (3.72-5.28); RED CELL DISTRIBUTION WIDTH 14.7 % (11.5-14.0); SEGMENTED NEUTROPHILS % (AUTO) 81.3 % (42-78); TOTAL CELLS COUNTED % (AUTO) 100 %; WHITE BLOOD COUNT 9.2 10^3/uL (4.0-10.5)
[2017-07-28 09:37] LABS: ALANINE AMINOTRANSFERASE 35 U/L (9-52); ALBUMIN 4.5 g/dL (3.5-5.0); ALKALINE PHOSPHATASE 54 U/L (38-126); ANION GAP 11 (5-19); ASPARTATE AMINO TRANSFERASE 24 U/L (14-36); BILIRUBIN,DIRECT 0.1 mg/dL (0.0-0.4); BILIRUBIN,TOTAL 0.4 mg/dL (0.2-1.3); BLOOD UREA NITROGEN 10 mg/dL (7-20); CARBON DIOXIDE 25 mmol/L (22-30); CHLORIDE 107 mmol/L (98-107); GLUCOSE 114 mg/dL (75-110); LIPASE 57.7 U/L (23-300); POTASSIUM 4.1 mmol/L (3.6-5.0); SODIUM 143.3 mmol/L (137-145)
[2017-07-28 09:55] LABS: APPEARANCE,URINE CLEAR; BILIRUBIN,URINE NEGATIVE (NEGATIVE); COLOR,URINE YELLOW; GLUCOSE, URINE NEGATIVE (NEGATIVE); KETONES,URINE NEGATIVE (NEGATIVE); LEUKOCYTE ESTERASE,URINE NEGATIVE (NEGATIVE); NITRITE,URINE NEGATIVE (NEGATIVE); PROTEIN,URINE NEGATIVE (NEGATIVE); URINE SPECIFIC GRAVITY 1.008; UROBILINOGEN,URINE NEGATIVE mg/dL (<2.0)
[2017-07-28 10:56] VITALS: BP 112/63
== END 2017-07-28 10:56 | disposition home or self-care (01) ==
LOC: ER 07:54
DX: B34.9 Viral infection, unspecified (principal); R11.2 Nausea with vomiting, unspecified; R19.7 Diarrhea, unspecified; R10.9 Unspecified abdominal pain; R09.81 Nasal congestion; R09.89 Other specified symptoms and signs involving the circulatory and respiratory systems; J02.9 Acute pharyngitis, unspecified; R51 Headache; Z91.040 Latex allergy status; Z88.2 Allergy status to sulfonamides; Z87.19 Personal history of other diseases of the digestive system
CPT/HCPCS: 99283; 96361; 96374; 96375; 36415; 87070; 87880; 83690; 85025; 81025; 80053; 81001; J1885; J2405; J7030

== ENCOUNTER → 2018-04-23 | Outpatient (CLI) | payer BC | LOC: OD 12:32 | PROVIDERS: ATTEND Physician Assistant Medical | DX: R30.0 Dysuria (principal) | CPT/HCPCS: 87086 ==

== ENCOUNTER 2018-07-12 17:11 | Emergency (ER) | payer BC ==
[2018-07-12] MEDS ORDERED: ONDANSETRON HCL INJ/PF 4 MG/2 ML SDV IV ONE (18:19)
[2018-07-12] MEDS ORDERED: NORMAL SALINE 1000 ML 1,000 ML IV ONE ×2 (18:19)
--- NOTE | 2018-07-12 18:27 | ER Document Report ---
ED Medical Screen (RME) - General Chief Complaint: Nausea/Vomiting/Diarrhea Stated Complaint: VOMITING/DIARRHEA Time Seen by Provider: 07/12/18 18:15 Primary Care Provider: DALI LANTIGUA PA-C [Primary Care Provider] - Follow up as needed Notes: Patient is a 37-year-old female that presents to the emergency department for chief complaint of nausea, vomiting diarrhea. Patient states she is involving most of the day, she had a brief syncopal episode as well, she is been lightheaded, and has not been able to keep anything down. ROS: Other than noted above, the 12 point review of systems was reviewed with the patient and were negative, all pertinent findings are included in the HPI. PHYSICAL EXAMINATION: Vital signs reviewed. GENERAL: Appears uncomfortable, but nontoxic and in no acute distress HEAD: Atraumatic, normocephalic. EYES: Pupils equal round extraocular movements intact, conjunctiva are normal. ENT: Nares patent NECK: Normal range of motion CV: Heart rate tachycardic, regular rhythm LUNGS: No respiratory distress Musculoskeletal: Normal range of motion NEUROLOGICAL: Normal speech PSYCH: Normal mood, normal affect. MDM: Patient seen and examined for rapid initial assessment. Vital signs reviewed. A comprehensive ED assessment and evaluation of the patient, analysis of test results and completion of the medical decision making process will be conducted by additional ED providers. *Note is created using voice recognition software and may contain spelling, syntax or grammatical errors. TRAVEL OUTSIDE OF THE [place] IN LAST 30 DAYS: No - Related Data Allergies/Adverse Reactions: latex [Latex] Allergy (Severe, Verified 07/12/18 17:13) rash Sulfa (Sulfonamide Antibiotics) Allergy (Severe, Verified 07/12/18 17:13) rash,difficulty breathing Past Medical History - Social History Frequency of alcohol use: None Drug Abuse: None - Past Medical History Cardiac Medical History: Denies: Hx Heart Attack, Hx Hypertension Pulmonary Medical History: Reports: Hx Pneumonia - hx of Denies: Hx Asthma, Hx Bronchitis, Hx COPD Neurological Medical History: Reports: Hx Migraine. Denies: Hx Seizures Renal/ Medical History: Reports: Hx Ovarian Cysts. Denies: Hx Peritoneal Dialysis GI Medical History: Reports: Hx Gastroesophageal Reflux Disease Musculoskeltal Medical History: Denies Hx Arthritis, Reports Hx Fibromyalgia, Reports Hx Musculoskeletal Trauma Psychiatric Medical History: Reports: Hx Attention Deficit Hyperactivity Disorder - ADD, Hx Depression Traumatic Medical History: Reports: Hx Pneumothorax - At with a chest tube Past Surgical History: Reports: Hx Section, Hx Gynecologic Surgery - Laparoscope bilateral tubal ligation, uterine ablation, Hx Orthopedic Surgery - Left Knee Surgery - Immunizations Hx Diphtheria, Pertussis, Tetanus Vaccination: Yes Physical Exam - Vital signs Vitals: Temp Pulse Resp BP Pulse Ox 98.4 F 116 H 18 121/82 98 07/12/18 17:18 07/12/18 17:18 07/12/18 17:18 07/12/18 17:18 07/12/18 17:18 Course - Vital Signs Vital signs: Temp Pulse Resp BP Pulse Ox 98.4 F 116 H 18 121/82 98 07/12/18 17:18 07/12/18 17:18 07/12/18 17:18 07/12/18 17:18 07/12/18 17:18 Doctor's Discharge - Discharge Referrals: DALI LANTIGUA PA-C [Primary Care Provider] - Follow up as needed
[2018-07-12 19:27] LABS: ABSOLUTE LYMPHOCYTES (AUTO) 0.5 10^3/uL (0.5-4.7); ABSOLUTE MONOCYTES (AUTO) 0.2 10^3/uL (0.1-1.4); ABSOLUTE NEUT (AUTO) 5.5 10^3/uL (1.7-8.2); BASOPHILS % (AUTO) 0.2 % (0-2); EOSINOPHILS % (AUTO) 0.1 % (0-6); HEMATOCRIT 42.2 % (36.0-47.0); HEMOGLOBIN 14.3 g/dL (12.0-15.5); LYMPHOCYTES % (AUTO) 7.9 % (13-45); MEAN CORPUSCULAR HEMOGLOBIN 31.3 pg (27.0-33.4); MEAN CORPUSCULAR HGB CONC 33.8 g/dL (32.0-36.0); MEAN CORPUSCULAR VOLUME 93 fl (80-97); MONOCYTES % (AUTO) 3.9 % (3-13); PLATELET COUNT 419 10^3/uL (150-450); RED BLOOD COUNT 4.56 10^6/uL (3.72-5.28); RED CELL DISTRIBUTION WIDTH 14.8 % (11.5-14.0); SEGMENTED NEUTROPHILS % (AUTO) 87.9 % (42-78); TOTAL CELLS COUNTED % (AUTO) 100 %; WHITE BLOOD COUNT 6.3 10^3/uL (4.0-10.5)
[2018-07-12 19:37] LABS: ALANINE AMINOTRANSFERASE 21 U/L (9-52); ALBUMIN 4.5 g/dL (3.5-5.0); ALKALINE PHOSPHATASE 53 U/L (38-126); ANION GAP 10 (5-19); ASPARTATE AMINO TRANSFERASE 27 U/L (14-36); BILIRUBIN,DIRECT 0.2 mg/dL (0.0-0.4); BILIRUBIN,TOTAL 1.1 mg/dL (0.2-1.3); BLOOD UREA NITROGEN 17 mg/dL (7-20); CALCIUM 10.1 mg/dL (8.4-10.2); CARBON DIOXIDE 25 mmol/L (22-30); CHLORIDE 100 mmol/L (98-107); GLUCOSE 121 mg/dL (75-110); LIPASE 47.8 U/L (23-300); POTASSIUM 4.3 mmol/L (3.6-5.0); SODIUM 134.9 mmol/L (137-145); TOTAL PROTEIN 7.7 g/dL (6.3-8.2)
--- NOTE | 2018-07-13 00:26 | ER Document Report ---
ED General - General Chief Complaint: Nausea/Vomiting/Diarrhea Stated Complaint: VOMITING/DIARRHEA Time Seen by Provider: 07/12/18 18:15 Primary Care Provider: DALI LANTIGUA PA-C [Primary Care Provider] - Follow up as needed Mode of Arrival: Ambulatory Information source: Patient Notes: This is a 37-year-old female with a history of endometrial who presents to the e mergency room with epigastric pain followed by nausea, vomiting (10-11 times) followed by diarrhea. Patient states that she did faint briefly earlier today. She last vomited at 11 AM. She denies any fever. TRAVEL OUTSIDE OF THE [place] IN LAST 30 DAYS: No - HPI Onset: Yesterday Onset/Duration: Gradual Quality of pain: Dull Severity: Moderate Pain Level: 2 Associated symptoms: Diarrhea, Nausea, Vomiting. denies: Chest pain, Fever, Shortness of breath Exacerbated by: Denies Relieved by: Denies Similar symptoms previously: No Recently seen / treated by doctor: No - Related Data Allergies/Adverse Reactions: latex [Latex] Allergy (Severe, Verified 07/12/18 17:13) rash Sulfa (Sulfonamide Antibiotics) Allergy (Severe, Verified 07/12/18 17:13) rash,difficulty breathing Past Medical History - General Information source: Patient - Social History Smoking Status: Never Smoker Cigarette use (# per day): No Chew tobacco use (# tins/day): No Frequency of alcohol use: None Drug Abuse: None Lives with: Family Family History: CAD, CVA, DM, Hyperlipidemia, Hypertension, Thyroid Disfunction, Other - Lupus Patient has suicidal ideation: No Patient has homicidal ideation: No - Past Medical History Cardiac Medical History: Denies: Hx Heart Attack, Hx Hypertension Pulmonary Medical History: Reports: Hx Pneumonia - hx of Denies: Hx Asthma, Hx Bronchitis, Hx COPD Neurological Medical History: Reports: Hx Migraine. Denies: Hx Seizures Renal/ Medical History: Reports: Hx Ovarian Cysts, Other - Endometriosis. Denies: Hx Peritoneal Dialysis GI Medical History: Reports: Hx Gastroesophageal Reflux Disease Musculoskeletal Medical History: Denies Hx Arthritis, Reports Hx Fibromyalgia, Reports Hx Musculoskeletal Trauma Psychiatric Medical History: Reports: Hx Attention Deficit Hyperactivity Disorder - ADD, Hx Depression Traumatic Medical History: Reports: Hx Pneumothorax - At with a chest tube Past Surgical History: Reports: Hx Section, Hx Gynecologic Surgery - Laparoscope bilateral tubal ligation, uterine ablation, Hx Orthopedic Surgery - Left Knee Surgery - Immunizations Hx Diphtheria, Pertussis, Tetanus Vaccination: Yes Review of Systems - Review of Systems Constitutional: denies: Chills, Fever EENT: No symptoms reported Cardiovascular: No symptoms reported Respiratory: No symptoms reported Gastrointestinal: See HPI Genitourinary: No symptoms reported Female Genitourinary: No symptoms reported Musculoskeletal: No symptoms reported Skin: No symptoms reported Hematologic/Lymphatic: No symptoms reported Neurological/Psychological: No symptoms reported Physical Exam - Vital signs Vitals: Temp Pulse Resp BP Pulse Ox 98.4 F 116 H 18 121/82 98 07/12/18 17:18 07/12/18 17:18 07/12/18 17:18 07/12/18 17:18 07/12/18 17:18 Notes: Physical exam: GENERAL: She is alert and oriented x3, no acute distress HEAD: Atraumatic, normocephalic. EYES: Pupils equal round and reactive to light, extraocular movements intact, sclera anicteric, conjunctiva are normal. ENT: TMs normal, nares patent, oropharynx clear without exudates. Moist mucous membranes. NECK: Normal range of motion, supple without obvious mass or JVD. LUNGS: Breath sounds clear to auscultation bilaterally and equal. No wheezes rales or rhonchi. HEART: Regular rate and rhythm without murmurs, rubs or gallops. ABDOMEN: Soft, normoactive bowel sounds. No tenderness to palpation. No guarding, no rebound. No masses appreciated. EXTREMITIES: Normal range of motion, no pitting or edema. No clubbing or cyanosis. NEUROLOGICAL: Cranial nerves II through XII grossly intact. Normal speech, moving all extremities. PSYCH: Normal mood, normal affect. SKIN: Warm, Dry, normal turgor, no rashes or lesions noted. Course - Re-evaluation Re-evalutation: 07/13/18 02:06 Patient was tolerating p.o. She is feeling much better. - Vital Signs Vital signs: Temp Pulse Resp BP Pulse Ox 98.1 F 86 18 117/80 100 07/13/18 02:46 07/13/18 02:46 07/13/18 02:46 07/13/18 02:46 07/13/18 02:46 - Laboratory Result Diagrams: 07/12/18 19:14 07/12/18 19:14 Laboratory results interpreted by me: 07/12/18 07/12/18 07/13/18 19:14 19:14 00:34 RDW 14.8 H Seg Neutrophils % 87.9 H Lymphocytes % 7.9 L Sodium 134.9 L Glucose 121 H Urine Ketones 80 H - Diagnostic Test Radiology reviewed: Image reviewed, Reports reviewed - Ultrasound shows no evidence of gallstones Discharge - Discharge Clinical Impression: Vomiting with nausea Condition: Stable Disposition: HOME, SELF-CARE Instructions: Antinausea Medication ([facility]), Intravenous (IV) Fluids ([facility]) Additional Instructions: Recommend rest, take it easy, drink plenty of fluids and advance diet slowly. Take Zofran for nausea. Follow-up with your primary care doctor: Bring a copy of today's labs and ultrasound report with you. The ultrasound did look good. To the ER for worsening pain, not tolerating fluids or any concerns or getting worse. Forms: Return to Work Referrals: DALI LANTIGUA PA-C [Primary Care Provider] - Follow up as needed
[2018-07-13 00:56] LABS: APPEARANCE,URINE CLEAR; BILIRUBIN,URINE NEGATIVE (NEGATIVE); COLOR,URINE YELLOW; GLUCOSE, URINE NEGATIVE (NEGATIVE); KETONES,URINE 80 mg/dL (NEGATIVE); LEUKOCYTE ESTERASE,URINE NEGATIVE (NEGATIVE); NITRITE,URINE NEGATIVE (NEGATIVE); PROTEIN,URINE NEGATIVE (NEGATIVE); URINE SPECIFIC GRAVITY 1.023; UROBILINOGEN,URINE NEGATIVE mg/dL (<2.0)
--- NOTE | 2018-07-13 01:18 | RADIOLOGY REPORT (SQ) ---
EXAM DESCRIPTION: US ABDOMEN LIMITED COMPLETED DATE/TME: 07/13/2018 00:24 CLINICAL HISTORY: 37 years, Female, upper abdominal pain TECHNIQUE: Grayscale and Doppler sonogram of the right upper quadrant abdomen. COMPARISON: None. FINDINGS: Pancreas: Visualized portion is unremarkable. Aorta: Visualized portion is unremarkable. IVC: Visualized portion is unremarkable. Liver: Homogenous echotexture. No mass lesion. Main portal vein: Normal hepatopetal flow. Gallbladder: No gallstones. No gallbladder wall thickening. Common bile duct: 0.2 cm. Right kidney: 9.6 cm. No hydronephrosis. No nephrolithiasis. IMPRESSION: No acute sonographic abnormality.
[2018-07-13] MEDS ORDERED: ONDANSETRON ODT 4 MG TAB (6 TAB/ER DISP) PO PRN (02:02)
[2018-07-13 02:56] VITALS: BP 117/80
== END 2018-07-13 02:49 | disposition home or self-care (01) ==
LOC: ER 17:11
DX: R11.2 Nausea with vomiting, unspecified (principal); R19.7 Diarrhea, unspecified; R10.13 Epigastric pain
CPT/HCPCS: 99284; 36415; 83690; 84703; 85025; 80053; 81001; 76705; J2405; J7030

== ENCOUNTER 2019-05-26 12:37 | Emergency (ER) | payer BC, MEDICAID ==
[2019-05-26 12:54] VITALS: BP 127/84
[2019-05-26 13:37] LABS: ABSOLUTE EOSINOPHILS # (AUTO) 0.1 10^3/uL (0.0-0.6); ABSOLUTE LYMPHOCYTES (AUTO) 2.4 10^3/uL (0.5-4.7); ABSOLUTE MONOCYTES (AUTO) 0.7 10^3/uL (0.1-1.4); ABSOLUTE NEUT (AUTO) 8.8 10^3/uL (1.7-8.2); BASOPHILS % (AUTO) 0.4 % (0-2); EOSINOPHILS % (AUTO) 0.5 % (0-6); HEMATOCRIT 37.3 % (36.0-47.0); HEMOGLOBIN 12.6 g/dL (12.0-15.5); LYMPHOCYTES % (AUTO) 19.8 % (13-45); MEAN CORPUSCULAR HEMOGLOBIN 31.6 pg (27.0-33.4); MEAN CORPUSCULAR HGB CONC 33.9 g/dL (32.0-36.0); MEAN CORPUSCULAR VOLUME 93 fl (80-97); MONOCYTES % (AUTO) 6.1 % (3-13); PLATELET COUNT 352 10^3/uL (150-450); SEGMENTED NEUTROPHILS % (AUTO) 73.2 % (42-78); TOTAL CELLS COUNTED % (AUTO) 100 %
[2019-05-26] MEDS ORDERED: NORMAL SALINE 1000 ML 1,000 ML IV ONE (13:38)
[2019-05-26] MEDS ORDERED: IPRATROPIUM/ALBUTEROL 0.5-2.5 MG/3 ML AMPUL NEB ONE (13:38)
[2019-05-26] MEDS ORDERED: ACETAMINOPHEN 325 MG TABLET PO ONE (13:39)
[2019-05-26] MEDS ORDERED: METHYLPREDNISOLONE INJ 125 MG/2 ML SDV IV ONE (13:39)
[2019-05-26 13:42] LABS: ALBUMIN 3.9 g/dL (3.5-5.0); ALKALINE PHOSPHATASE 57 U/L (38-126); ANION GAP 8 (5-19); ASPARTATE AMINO TRANSFERASE 41 U/L (14-36); BILIRUBIN,TOTAL 0.4 mg/dL (0.2-1.3); BLOOD UREA NITROGEN 14 mg/dL (7-20); CALCIUM 9.5 mg/dL (8.4-10.2); CARBON DIOXIDE 26 mmol/L (22-30); CHLORIDE 104 mmol/L (98-107); GLUCOSE 97 mg/dL (75-110); TOTAL PROTEIN 6.6 g/dL (6.3-8.2)
--- NOTE | 2019-05-26 14:05 | RADIOLOGY REPORT (SQ) ---
EXAM DESCRIPTION: CHEST 2 VIEWS COMPLETED DATE/TIME: 05/26/2019 1:52 pm REASON FOR STUDY: Fever, congested cough, short of breath COMPARISON: None. EXAM PARAMETERS: NUMBER OF VIEWS: two views TECHNIQUE: Digital Frontal and Lateral radiographic views of the chest acquired. RADIATION DOSE: NA LIMITATIONS: none FINDINGS: LUNGS AND PLEURA: No consolidation, pneumothorax or pleural effusion. MEDIASTINUM AND HILAR STRUCTURES: No masses or contour abnormalities. HEART AND VASCULAR STRUCTURES: Heart normal size. No evidence for failure. BONES: No acute findings. HARDWARE: None in the chest. IMPRESSION: NO ACUTE RADIOGRAPHIC FINDING IN THE CHEST. TECHNICAL DOCUMENTATION: JOB ID: [id number] [employer]- All Rights Reserved Reading location - IP/workstation name: [email or web address]
[2019-05-26] MEDS ORDERED: ALBUTEROL SULFATE 0.083% NEB 2.5 MG/3 ML AMPUL NEB ONE (14:46)
[2019-05-26] MEDS ORDERED: PREDNISONE 20 MG TABLET PO ONE (15:33)
[2019-05-26] MEDS ORDERED: ALBUTEROL SULFATE HFA (90 MCG/PUFF) 8 GM MDI (1 MDI/ER DISP) IH ONE (15:34)
[2019-05-26] MEDS ORDERED: AZITHROMYCIN 250 MG TABLET PO ONE (15:34)
[2019-05-26] MEDS ORDERED: BENZONATATE 100 MG CAPSULE PO ONE (15:40)
--- NOTE | 2019-05-26 19:39 | ER Document Report ---
Entered by TED NAILS SCRIBE 05/26/19 1338 Acting as scribe for:GIL SIDDIQI MD ED General - General Chief Complaint: Shortness Of Breath Stated Complaint: SHORTNESS OF BREATH Time Seen by Provider: 05/26/19 13:20 Primary Care Provider: CAROLINA ALEXIS MD [Primary Care Provider] - Follow up as needed Information source: Patient Notes: This 38 year old female patient presents to the emergency department today with complaints of a cough for the past x3 weeks. Patient states her cough is sometimes productive with yellow/green sputum. Patient states she has had a subjective fever intermittently with it not reaching above 100.6 degrees. Patient states she had chest tightness this morning, stating that it was associated with her cough and congestion. Patient has symptoms of nausea and a lack of appetite, but denies vomiting. TRAVEL OUTSIDE OF THE [place] IN LAST 30 DAYS: No - Related Data Allergies/Adverse Reactions: latex [Latex] Allergy (Severe, Verified 07/12/18 17:13) rash Sulfa (Sulfonamide Antibiotics) Allergy (Severe, Verified 07/12/18 17:13) rash,difficulty breathing Home Medications: adderall Past Medical History - General Information source: Patient - Social History Smoking Status: Never Smoker Cigarette use (# per day): No Lives with: Family Family History: CAD, CVA, DM, Hyperlipidemia, Hypertension, Thyroid Disfunction, Other - Lupus Patient has suicidal ideation: No Patient has homicidal ideation: No Pulmonary Medical History: Reports: Hx Pneumonia - hx of Neurological Medical History: Reports: Hx Migraine Renal/ Medical History: Reports: Hx Ovarian Cysts GI Medical History: Reports: Hx Gastroesophageal Reflux Disease Musculoskeletal Medical History: Reports Hx Fibromyalgia, Reports Hx Musculoskeletal Trauma Psychiatric Medical History: Reports: Hx Attention Deficit Hyperactivity Disorder - ADD, Hx Depression Traumatic Medical History: Reports: Hx Pneumothorax - At with a chest tube Past Surgical History: Reports: Hx Section, Hx Gynecologic Surgery - Laparoscope bilateral tubal ligation, uterine ablation, Hx Orthopedic Surgery - Left Knee Surgery - Immunizations Hx Diphtheria, Pertussis, Tetanus Vaccination: Yes Review of Systems - Review of Systems Constitutional: See HPI, Fever EENT: See HPI Cardiovascular: No symptoms reported Respiratory: See HPI, Cough, Short of breath, Sputum, Other - chest tightness with cough Gastrointestinal: See HPI, Nausea, Poor appetite Genitourinary: No symptoms reported Female Genitourinary: No symptoms reported Musculoskeletal: No symptoms reported Skin: No symptoms reported Hematologic/Lymphatic: No symptoms reported Neurological/Psychological: No symptoms reported -: Yes All other systems reviewed and negative Physical Exam - Vital signs Vitals: Temp Pulse Resp BP Pulse Ox 98.1 F 104 H 20 127/84 H 99 05/26/19 12:52 05/26/19 12:52 05/26/19 12:52 05/26/19 12:52 05/26/19 12:52 - General General appearance: Appears well, Alert - HEENT Head: Normocephalic, Atraumatic Eyes: Normal Pupils: PERRL Ears: Normal External canal: Normal Tympanic membrane: Normal Pharynx: Erythema - Respiratory Respiratory status: No respiratory distress Chest status: Nontender Breath sounds: Productive cough, Rhonchi, Wheezing Chest palpation: Normal - Cardiovascular Rhythm: Regular Heart sounds: Normal auscultation Murmur: No - Abdominal Inspection: Normal Distension: No distension Bowel sounds: Normal - Extremities General upper extremity: Normal inspection. No: Edema General lower extremity: Normal inspection. No: Edema - Neurological Neuro grossly intact: Yes Cognition: Normal Orientation: AAOx4 Speech: Normal - Psychological Associated symptoms: Normal affect, Normal mood - Skin Skin Temperature: Warm Skin Moisture: Dry Skin Color: Normal Course - Re-evaluation Re-evalutation: 05/26/19 15:34 Wheezes and most of the rhonchi seem to have cleared after the breathing florin tments. Pulse ox is 100% on room air. - Vital Signs Vital signs: Temp Pulse Resp BP Pulse Ox 98.1 F 104 H 20 127/84 H 100 05/26/19 12:52 05/26/19 12:52 05/26/19 12:52 05/26/19 12:52 05/26/19 15:00 - Laboratory Result Diagrams: 05/26/19 13:00 05/26/19 13:00 Laboratory results interpreted by me: 05/26/19 05/26/19 13:00 13:00 WBC 12.0 H Absolute Neuts (auto) 8.8 H AST 41 H - Diagnostic Test Radiology reviewed: Image reviewed, Reports reviewed - Chest x-ray does not show acute changes. Discharge - Discharge Clinical Impression: Bronchitis with bronchospasm, Viral upper respiratory tract infection with cough Condition: Stable Disposition: HOME, SELF-CARE Additional Instructions: Bronchitis with Bronchospasm (Wheezing) You have bronchitis with bronchospasm (wheezing). Sometimes people develop wheezing with a chest cold. This occurs either because of an underlying tendency toward asthma or because the virus itself irritates the bronchial tu bes. This irritation causes cough, shortness of breath, and wheezing. Emergency treatment of bronchospasm may include adrenaline shots or bronchodilator aerosol. You may feel lightheaded and have a rapid pulse for an hour or two. Rest and get plenty of fluids. At home, we'll treat you with a bronchodilator inhaler. Corticosteroids may be required for some patients. Until you recover, avoid chemical fumes, dusts, pollens, and exercising in very cold or dry air. If you smoke, stop now! Most cases of bronchitis get better without antibiotics. We prescribe antibiotics when we believe bacteria are damaging your airways, or if there's high risk the bronchitis will worsen into pneumonia. Increase your fluid intake. A cool mist humidifier may make your lungs more comfortable. An expectorant (cough medicine that loosens phlegm) can help. Repeated episodes of bronchitis and bronchospasm may result in lung damage -- for example, chronic bronchitis, recurrent pneumonias, or emphysema. If you develop a fever, increased wheezing, chest pain, or severe shortness of breath, you should contact the doctor immediately. Start the prednisone as prescribed tomorrow. Use the inhaler 2 puffs every 2-4 hours as needed for wheezing. Take the Tessalon Perles as prescribed to help control your cough. Add something like Robitussin-DM for cough control. Drink plenty of fluids and get plenty of rest. Follow-up with a local primary care provider if not improving. RETURN TO THE EMERGENCY ROOM IF ANY NEW OR WORSENING SYMPTOMS. Prescriptions: Prednisone [Deltasone 10 mg Tablet] 10 mg PO ASDIR PRN #21 tablet PRN Reason: Benzonatate [Tessalon Perles 100 mg Capsule] 100 mg PO ASDIR PRN #30 capsule PRN Reason: Referrals: CAROLINA ALEXIS MD [Primary Care Provider] - Follow up as needed Scribe Attestation: 05/26/19 15:36 I personally performed the services described in the documentation, reviewed and edited the documentation which was dictated to the scribe in my presence, and it accurately records my words and actions. I personally performed the services described in the documentation, reviewed and edited the documentation which was dictated to the scribe in my presence, and it accurately records my words and actions.
--- NOTE | 2019-05-26 20:31 | EKG REPORT ---
SEVERITY:- OTHERWISE NORMAL ECG - SINUS RHYTHM ATRIAL PREMATURE COMPLEX : Confirmed by: Christina Otto MD 26-May-2019 20:30:31
== END 2019-05-26 16:00 | disposition home or self-care (01) ==
LOC: ER 12:37
DX: J40 Bronchitis, not specified as acute or chronic (principal); J98.01 Acute bronchospasm; J06.9 Acute upper respiratory infection, unspecified; B97.89 Other viral agents as the cause of diseases classified elsewhere; R05 Cough; R06.2 Wheezing; R06.02 Shortness of breath; R07.89 Other chest pain; R11.0 Nausea; R63.0 Anorexia; F90.9 Attention-deficit hyperactivity disorder, unspecified type; Z79.899 Other long term (current) drug therapy; Z87.01 Personal history of pneumonia (recurrent); Z91.040 Latex allergy status; Z88.2 Allergy status to sulfonamides
CPT/HCPCS: 36415; 71046; 80053; 85025; 93005; 93010; 94640; 96361; 96374; 99284; J2930; J3490; J7030; J7512; J7620